=== PATIENT | female | born 1990 | race Caucasian/White ===

== ENCOUNTER 2018-10-10 11:50 | Outpatient (CLI) | payer MEDICAID | END 2018-10-10 15:10 | disposition home or self-care (01) | LOC: OBT 11:50 → L-D 11:51 → OBT 15:10 | DX: O76 Abnormality in fetal heart rate and rhythm complicating labor and delivery (principal); Z3A.38 38 weeks gestation of pregnancy ==

== ENCOUNTER 2018-10-11 10:33 | Inpatient (IN) | payer MEDICAID ==
[2018-10-11] MEDS ORDERED: METHYLERGONOVINE 0.2 MG INJ IM (11:30)
[2018-10-11] MEDS ORDERED: LIDOCAINE 1% (MPF) 30 ML INJ INJ (11:30)
[2018-10-11] MEDS ORDERED: CARBOPROST 250 MCG INJ IM ×2 (11:30→17:00)
[2018-10-11] MEDS ORDERED: MISOPROSTOL 200 MCG TAB PR (11:30)
[2018-10-11] MEDS ORDERED: OXYTOCIN 30 UNITS/LR 500 ML IV ×3 (11:30→17:00)
[2018-10-11] MEDS ORDERED: BUTORPHANOL 2 MG INJ IV ×2 (11:30)
[2018-10-11] MEDS: LACTATED RINGER'S 1,000 ML IV (12:14)
[2018-10-11 12:58] LABS: ADD MAN DIFF? NO
[2018-10-11 13:01] LABS: WHITE BLOOD COUNT 5.8 10^3/ul (4.8-10.8)
[2018-10-11 13:02] LABS: BASOPHILS % 0.3 % (0.0-2.0); EOSINOPHILS % 0.2 % (0.0-7.0); HEMATOCRIT 40.4 % (37.0-47.0); LYMPHOCYTES # 1.9 10^3/ul (0.8-2.9); LYMPHOCYTES % 33.4 % (15.0-51.0); MEAN CORPUSCULAR HGB CONC 34.7 g/dl (32.0-37.0); MEAN CORPUSCULAR VOLUME 89.4 fl (82.0-101.0); MEAN PLATELET VOLUME 10.7 fl (7.4-10.4); MONOCYTE # 0.4 10^3/ul (0.3-0.9); MONOCYTES % 6.1 % (0.0-11.0); NEUTROPHIL # 3.5 10^3/ul (1.6-7.5); NEUTROPHILS % 59.7 % (39.0-77.0); PLATELET COUNT 225 10^3/UL (140-415); RED BLOOD COUNT 4.52 10^6/ul (4.20-5.40); RED CELL DISTRIBUTION WIDTH 13.7 % (11.5-14.5)
[2018-10-11 13:21] LABS: INR 0.84; PROTIME 11.6 Sec (11.9-14.9); PT RATIO 0.9
[2018-10-11 13:22] LABS: PARTIAL THROMBOPLASTIN TIME 33.5 Sec (23.0-35.0)
[2018-10-11] MEDS ORDERED: FENTAnyl 50 MCG/ML VIAL (13:48)
[2018-10-11 13:52] LABS: HEPATITIS B SURFACE ANTIGEN NEGATIVE (NEGATIVE)
[2018-10-11] MEDS ORDERED: NALOXONE (0.4 MG/ML) INJ IV (14:00)
[2018-10-11] MEDS ORDERED: FENTAnyl 2MCG/ML-ROPIV 0.2% 100 ML BAG EPI (14:00)
[2018-10-11 14:57] LABS: RAPID PLASMA REAGIN NONREACTIVE (NR)
[2018-10-11] MEDS: LACTATED RINGER'S 1,000 ML IV* (16:33)
[2018-10-11] MEDS: OXYTOCIN 30 UNITS/LR 500 ML IV ×3 (16:54→19:01)
[2018-10-11] MEDS ORDERED: LANOLIN HPA 1 PKT TOP (17:00)
[2018-10-11] MEDS ORDERED: ONDANSETRON 4 MG INJ IV (17:00)
[2018-10-11] MEDS ORDERED: ACETAMINOPHEN 325 MG TAB PO (17:00)
[2018-10-11] MEDS ORDERED: DIBUCAINE 1% 30 GM OINT TOP (17:00)
[2018-10-11] MEDS: METHYLERGONOVINE 0.2 MG INJ IM (17:24)
[2018-10-11] MEDS: MISOPROSTOL 200 MCG TAB PR (18:05)
[2018-10-11] MEDS: ACETAMINOPHEN 325 MG TAB PO (18:56)
[2018-10-11] MEDS: WITCH HAZEL/GLYCERIN PAD PR (21:58)
[2018-10-11] MEDS: BENZOCAINE 20% 56 ML SPRAY TOP (21:59)
[2018-10-11] MEDS: IBUPROFEN 600 MG TAB PO (23:38)
[2018-10-12] MEDS: LACTATED RINGER'S 1,000 ML IV* (00:33)
[2018-10-12] MEDS: IBUPROFEN 600 MG TAB PO ×2 (05:48→23:44)
[2018-10-12 08:19] LABS: ADD MAN DIFF? NO
[2018-10-12 08:20] LABS: WHITE BLOOD COUNT 8.7 10^3/ul (4.8-10.8)
[2018-10-12 08:20] LABS: BASOPHILS % 0.2 % (0.0-2.0); EOSINOPHILS % 0.1 % (0.0-7.0); HEMATOCRIT 33.3 % (37.0-47.0); HEMOGLOBIN 11.2 g/dl (12.0-16.0); LYMPHOCYTES # 2.5 10^3/ul (0.8-2.9); MEAN CORPUSCULAR HGB CONC 33.6 g/dl (32.0-37.0); MEAN CORPUSCULAR VOLUME 92.2 fl (82.0-101.0); MEAN PLATELET VOLUME 10.6 fl (7.4-10.4); MONOCYTE # 0.4 10^3/ul (0.3-0.9); NEUTROPHIL # 5.8 10^3/ul (1.6-7.5); NEUTROPHILS % 66.2 % (39.0-77.0); PLATELET COUNT 185 10^3/UL (140-415); RED BLOOD COUNT 3.61 10^6/ul (4.20-5.40); RED CELL DISTRIBUTION WIDTH 13.7 % (11.5-14.5)
[2018-10-12] MEDS: MAGNESIUM HYDROXIDE 30ML CUP PO (21:59)
[2018-10-12] MEDS: SENNA/DOCUSATE NA (8.6MG/50MG) TAB PO (21:59)
[2018-10-13] MEDS: IBUPROFEN 600 MG TAB PO (05:44)
== END 2018-10-13 13:16 | disposition home or self-care (01) | DRG 807 ==
LOC: OBT 10:33 → L-D 10:33 → OBT 11:15 → L-D 11:37 → PP1 20:11
PROVIDERS: Obstetrics & Gynecology
PROC: 10E0XZZ Delivery of Products of Conception, External Approach (ICD-10-PCS; principal; 2018-10-11)
DX: O69.81X0 Labor and delivery complicated by cord around neck, without compression, not applicable or unspecified (principal); Z37.0 Single live birth; Z3A.38 38 weeks gestation of pregnancy
CPT/HCPCS: 62322; 76815; 85025; 85610; 85730; 86592; 86850; 86900; 86901; 87340; 99464